=== PATIENT | female | born 1990 | race Hispanic/Latino ===

== ENCOUNTER 2022-08-12 21:22 | Emergency (ER) | payer SELFPAY | END 2022-08-12 21:56 | disposition home or self-care (01) | LOC: CSHERS 21:22 | DX: H92.02 Otalgia, left ear (principal); F17.210 Nicotine dependence, cigarettes, uncomplicated | CPT/HCPCS: 99282 ==

== ENCOUNTER 2023-06-13 19:10 | Emergency (ER) | payer SELFPAY ==
[2023-06-13] MEDS ORDERED: Ketorolac Tromethamine 30 MG/ML VIAL ONE (20:53)
== END 2023-06-13 21:17 | disposition home or self-care (01) ==
LOC: CSHERS 19:10
DX: H66.91 Otitis media, unspecified, right ear (principal); F17.210 Nicotine dependence, cigarettes, uncomplicated
CPT/HCPCS: 96372; 99282; J1885